=== PATIENT | female | born 1965 | race Caucasian/White ===

== ENCOUNTER 2017-05-08 06:08 | Day surgery (SDC) | payer BC ==
[~2017-05-08 06:08] MED LIST: LACTATED RINGERS 1,000 ML ONE
[2017-05-08 09:47] VITALS: BP 118/68; TEMP 97.5; O2SAT 98
[2017-05-08] MEDS ORDERED: PROPOFOL 200 MG/20 ML VIAL IV ONE (10:00)
[2017-05-08] MEDS ORDERED: LIDOCAINE 1% 10 ML VIAL INJ ONE (10:00)
--- NOTE | 2017-05-08 10:46 | OP ---
DATE OF PROCEDURE: 05/08/17 PREOPERATIVE DIAGNOSIS: 1. High risk screening, family history of colon cancer. POSTOPERATIVE DIAGNOSIS: 1. Sigmoid diverticulosis. PROCEDURE: 1. Colonoscopy. SURGEON: Bebo Pressley MD ANESTHESIA: Monitored anesthesia care. ESTIMATED BLOOD LOSS: Less than 5 mL. COMPLICATIONS: No immediate complications. PROCEDURE: The patient was placed in the left lateral decubitus position. After deep sedation was achieved with monitored anesthesia care, the Olympus colonoscope was inserted through the anus into the rectum and advanced to the cecum under direct visualization. Advancement was done with ease. The patient' s bowel preparation was good. Photodocumentation of the ileocecal and appendiceal orifice were performed. The endoscope was then progressively withdrawn and the total colonic lumen evaluated. Retroflexion was performed in the rectum. The endoscope was then withdrawn and the procedure terminated. The patient tolerated the procedure well with no immediate complications. FINDINGS: Mild diverticulosis was seen in the sigmoid colon. There was no evidence of inflammation or bleeding. The exam was otherwise unremarkable. IMPRESSION: Sigmoid diverticulosis. RECOMMENDATIONS: 1. Repeat colonoscopy in five years given family history. 2. Followup with primary care physician as previously scheduled. #[id number] [facility]
== END 2017-05-08 09:35 | disposition home or self-care (01) ==
LOC: AMB 06:08
PROVIDERS: ATTEND Internal Medicine Gastroenterology
DX: Z12.11 Encounter for screening for malignant neoplasm of colon (principal); K57.30 Diverticulosis of large intestine without perforation or abscess without bleeding; Z80.0 Family history of malignant neoplasm of digestive organs; Z96.653 Presence of artificial knee joint, bilateral; Z79.899 Other long term (current) drug therapy
CPT/HCPCS: 00812; 45378; J3490; J7120